=== PATIENT | female | born 1945 | race Caucasian/White ===

== ENCOUNTER 2018-08-14 14:22 | Outpatient (CLI) | payer MEDICARE | END 2018-08-14 14:23 | disposition home or self-care (01) | LOC: ULT 14:22 | PROVIDERS: ATTEND Family Medicine | DX: R60.0 Localized edema (principal); I08.3 Combined rheumatic disorders of mitral, aortic and tricuspid valves | CPT/HCPCS: 93306 ==

== ENCOUNTER 2020-02-21 13:08 | Inpatient (IN) | payer MEDICARE, OTHER ==
[~2020-02-21 13:08] MED LIST: Iopamidol-370 76% 500 ML 1 ML ONE
[2020-02-21] MEDS ORDERED: Morphine 4 MG/ML VIAL ONE (13:52)
[2020-02-21 14:27] LABS: #Eosinphils 0.2 thou/uL (0.0-0.7); #Lymphocytes 1.1 thou/uL (1.20-3.40); #Monocytes 0.6 thou/uL (0.11-0.59); %Basophils 0.2 % (0.0-1.0); %Lymphocytes 12.6 % (21.0-51.0); %Monocytes 6.2 % (0.0-10.0); Hemoglobin 13.1 g/dL (12.0-16.0); Mean Corpuscular HGB CONC 32.3 g/dL (32.0-36.0); Mean Corpuscular Hemoglobin 30.8 pg (27.0-31.0); Mean Corpuscular Volume 95.5 fL (78.0-98.0); Mean Platelet Volume 9.2 fL (7.4-10.4); Platelet Count 187 thou/uL (130-400); RBC Distribution Width 11.2 % (11.5-14.5); Red Blood Cell (RBC) Count 4.25 mill/uL (4.20-5.40); White Blood Cell (WBC) Count 8.8 thou/uL (4.8-10.8)
[2020-02-21 14:43] LABS: Anion Gap 16 mmol/L (10-20); BUN (Urea Nitrogen) 23 mg/dL (9.8-20.1); Calc. Creatinine Clearance 0 mL/min (70-130); Calcium 9.5 mg/dL (7.8-10.44); Carbon Dioxide 23 mmol/L (23-31); Chloride 106 mmol/L (98-107); Estimated GFR-MDRD 67; Glucose 139 mg/dL (83-110); Potassium 4.3 mmol/L (3.5-5.1); Sodium 141 mmol/L (136-145)
[2020-02-21] MEDS ORDERED: Acetaminophen 500 MG TAB ONE (15:22)
[2020-02-21] MEDS ORDERED: hydrALAZINE 20 MG/ML VIAL SLOW IVP PRN (17:46)
[2020-02-21] MEDS ORDERED: Dextrose 50% Abboject 50 ML SYRINGE SLOW IVP PRN (17:46)
[2020-02-21] MEDS ORDERED: Morphine 2 MG/ML VIAL SLOW IVP PRN (17:46)
[2020-02-21] MEDS ORDERED: Dextrose 5% in Water 1,000 ML IV PRN (17:46)
[2020-02-21] MEDS ORDERED: Lisinopril 10 MG TAB ONE (17:55)
[2020-02-21] MEDS ORDERED: Amlodipine 5 MG TAB ONE (17:55)
--- NOTE | 2020-02-21 18:18 | CT ---
NONCONTRAST CT HEAD CT ANGIOGRAM HEAD WITH IV CONTRAST AND 3D RECONSTRUCTIONS CT ANGIOGRAM NECK WITH IV CONTRAST AND 3D RECONSTRUCTIONS: 02/21/20 HISTORY: C1 fracture. Recent fall. NONCONTRAST CT HEAD COMPARISON: 02/21/20 at 1044 hours. FINDINGS: There are low density foci seen within each caudate head related to lacunar infarction of indetermina te age and unchanged from prior exam. There is no evidence of an acute cortical infarction, hemorrhag e, mass effect, or midline shift. Ventricular system is normal in size, shape and position for the de gree of focal atrophy. CT ANGIOGRAM HEAD AND NECK: Vascular calcifications are seen at the aortic arch. The left subclavian artery and innominate artery are patent. Right subclavian artery is partially obscured due to dense venous contrast. The bilatera l common carotid arteries are patent. Vascular calcifications are seen at the carotid artery bifurcations. The bilateral internal carotid a rteries are otherwise patent. The right vertebral artery is patent and dominant. The left vertebral artery is small in caliber and occludes just distal to the level of the C1 transverse process fracture which is seen on this examina tion and also seen on CT cervical spine on 02/21/20 at 1045 hours. There is slight irregularity of the margins of the left vertebral artery just distal to the fracture, and the left vertebral artery then occludes. There is a small amount of contrast seen in the most distal left vertebral artery likely r elated to reflux on contralateral right side. The basilar artery is patent. Bilateral posterior cerebral arteries are patent. The bilateral middle cerebral and anterior cerebral arteries are patent. No focal stenosis or branch occlusion is seen, and there is no aneurysm within the limitations of the technique of this exam. As noted above and compared with prior CT cervical spine on this date, there is a slightly fracture through the left transverse process of C1 which extends through the left foramen transversar ium. Prevertebral soft tissues are within normal limits. Subcentimeter nodular densities are seen in each lobe of the thyroid gland with calcifications also s een in the right lobe of the thyroid gland. There are ground glass densities seen in the upper lung zones bilaterally which may represent volume loss as this exam is obtained in expiratory phase of imaging. IMPRESSION: 1. Fracture left transverse process of C1 which extends through the foramen transversarium. The left vertebral artery occludes just distal to the level of the fracture. The most distal left vertebr al artery is opacified likely related to flow from the contralateral right vertebral artery. 2. Patent bilateral carotid arteries. 3. No focal stenosis or branch occlusion is seen involving the t[place] of [place]. 4. Right vertebral artery is patent although there is mild narrowing with calcified atherosclero tic calcification in the distal right vertebral artery. Basilar artery and posterior cerebral arterie s are patent. 5. Lacunar infarctions each basal ganglia of indeterminate age. No acute cortical infarction or hemorrhage is seen. 6. Above findings discussed with Dr. Damico in the Emergency Department on 02/21/20 at 1611 h ours. POS: [facility]
[2020-02-21 18:29] LABS: Prothrombin Time 12.7 sec (12.0-14.7)
[2020-02-21] MEDS: Acetaminophen 325 MG TAB PO SCH (19:51)
[2020-02-21] MEDS: HYDROcodone/Acetaminophen 5/325 mg Tablet PO PRN (20:57)
[2020-02-21] MEDS: Famotidine 20 MG TAB PO SCH (20:57)
[2020-02-21] MEDS: Naproxen 500 MG TAB PO SCH (21:01)
[2020-02-21 21:19] VITALS: BMI 40.1
[2020-02-21] MEDS: Ondansetron PF 4 MG/2 ML Vial IVP PRN (21:45)
--- NOTE | 2020-02-21 23:38 | CON ---
DATE OF CONSULTATION: 02/21/2020 HISTORY OF PRESENT ILLNESS: The patient is a 74-year-old female with a history of hypertension, diabetes, hyperlipidemia, who presented to [facility] Emergency Department after a mechanical fall off her recliner. The patient reports that she fell asleep in her chair and then suddenly fell forward out of the chair, striking the right frontal region on the entertainment center. She was brought to [facility] ER where she was evaluated with CT head and cervical spine, which were notable for a left-sided C1 fracture through the transverse foramen, transverse process and along the left lateral mass. She was transferred for further management of this fracture. CT head was negative for acute injury. Upon arrival to the emergency department, I discussed the case with the emergency physician and recommended CTA of the head and neck. CTA was notable for left vertebral artery dissection. I visited the patient in the ER. She is currently immobilized in a hard collar. She is complaining of some pain in the upper posterior cervical region. She is A and O x4 with no focal neurologic deficits. She takes an 81 mg aspirin daily. Blood pressure slightly is notably elevated with systolic pressure of 197 at this time. PAST MEDICAL HISTORY: Hypertension, hyperlipidemia, diabetes. PAST SURGICAL HISTORY: Bilateral knee replacement, cataract surgery. SOCIAL HISTORY: She lives at home. She does not smoke, drink, or use any drugs. REVIEW OF SYSTEMS: Per HPI. ALLERGIES: SHE HAS NO KNOWN DRUG ALLERGIES. PHYSICAL EXAMINATION: CONSTITUTIONAL: Awake, alert, in no acute distress. HEAD: She has a small abrasion along the frontal region on the right. EYES: PERRLA. Extraocular movements intact. ENT: Manuel Garcia, intact, moist. She has a normal voice. NECK: She is currently immobilized in a hard cervical collar. RESPIRATORY: Symmetric chest expansion. CARDIOVASCULAR: Regular rate and rhythm. MUSCULOSKELETAL: She has free active range of motion of all extremities. No focal motor weakness. NEUROLOGIC: A and O x4. No focal neurologic deficits are appreciated. ASSESSMENT AND PLAN: This is a 74-year-old female with a mechanical fall, who was found to have a left C1 fracture through the transverse foramen with a left vertebral artery dissection. We will plan to treat the fracture conservatively in a C-collar at all times. I have ordered an [place] to wear at all times and a [place] collar for showering purposes. We will also anticoagulate her with an aspirin 325 mg daily. We will work on getting her blood pressure down here and monitor in the IMCU closely overnight with frequent neuro checks. Her systolic blood pressure goal should be less than 160. I have discussed this plan with Dr. Iqbal who is in agreement. The patient has been admitted by the Trauma team. Job ID: [id number] MTDD
[2020-02-22] MEDS: Acetaminophen 325 MG TAB PO SCH ×5 (00:16→23:45)
[2020-02-22] MEDS: HYDROcodone/Acetaminophen 5/325 mg Tablet PO PRN ×2 (02:21→20:26)
[2020-02-22] MEDS: Ondansetron PF 4 MG/2 ML Vial IVP PRN ×3 (02:46→20:27)
--- NOTE | 2020-02-22 04:20 | HP ---
REFERRED BY: Dr. Giang in the emergency department. CRITICAL CARE/TRAUMA ATTENDING: Waqas Tello MD PRIMARY CARE PHYSICIAN: Dr. Chowdhury at [facility] in [place]. HISTORY OF PRESENT ILLNESS: Ms. Newman is a 74-year-old female with past medical history of type 2 diabetes, sciatic pain, hypertension, peripheral vascular disease, possibly hyperlipidemia, presenting to [place] [facility] after a fall resulting in an axial load approximately 0600 hours this date. The patient states she was in a chair in her room. At that time, she got up and stumbled forward. It was not a chair that she was used to getting out of, landing straight on the top of her head against an entertainment system. She fell to the floor. She had some neck pain. She was unable to get up. Finally, summoned EMS around 9 o'clock and was brought to the emergency department. In the emergency department at [place], was found to have a C1 fracture. She was given pain control, C-collar, and transferred here. Here, the patient underwent a CTA, demonstrated a left vertebral artery dissection. The patient has been seen by Neurosurgery. She is neurovascularly intact. She is hemodynamically stable. She does have hypertension of note. Her pain is controlled after 4 mg of morphine. She has not taken any of her antihypertensives today. I evaluated personally the patient in the emergency department alongside the nurse surgical PA and the bedside RN. The patient was noted to have a blood pressure nearly 200 systolic. She has no headache. No chest pain or shortness of air. No nausea, no vomiting. She does report some right-sided pain and sciatic pain that is chronic for her. Otherwise, she denies any other injuries. She is able to move all of her extremities. She does have some slight neck pain and some pain to the back of her head only. The patient does not have a global headache. The patient has no paresthesias. She was able to move all of her extremities. She has no visual changes. REVIEW OF SYSTEMS: Pertinent positive and negative per HPI, otherwise regarded as negative. PAST MEDICAL HISTORY: Significant for diabetes type 2, non-insulin dependent, right sciatica, hypertension, peripheral vascular disease, and hyperlipidemia. PAST SURGICAL HISTORY: Bilateral TKA, bilateral cataract surgeries. MEDICATIONS: 1. Metformin 1 g b.i.d. 2. Lisinopril 20 mg daily. 3. Lasix 20 mg daily. 4. Glipizide. 5. Pioglitazone 15 mg daily. 6. Atorvastatin 20 mg daily. ALLERGIES: ULTRAM CAUSING A RASH AND BURNING. SOCIAL HISTORY: She is a lifelong nonsmoker. No tobacco use. Socially drinks alcohol only. She is of 50 years, has one adult daughter and three grandsons. She lives alone. FAMILY HISTORY: Significant for renal disease in her mother, likely secondary to NSAIDs use from RA and heart disease in her father. PHYSICAL EXAMINATION: VITAL SIGNS: Today, temperature is 98.0, blood pressure 189/85, heart rate is 59, breathing 20 times per minute, saturating 94% on room air. GENERAL: This is a 74-year-old female lying supine in bed in a C-collar in no acute distress. Nontoxic appearing. HEENT: Normocephalic, atraumatic. Trachea is midline. She does have an [place] collar in place. There is no soft tissue swelling. No edema. No point tenderness. RESPIRATORY: Equal rise and fall. Bilateral breath sounds. Clear to auscultation in upper and lower lobes bilaterally. CARDIOVASCULAR: Trace bradycardia at a rate of 58. No murmurs were appreciated. EXTREMITIES: Nonpitting edema to the level just above the ankles bilaterally. She has strong pulses. Warm extremities. No edema in the upper extremities. ABDOMEN: Obese, but soft, nontender. No peritoneal signs. No masses, guarding, or rigidity. Pelvis is stable. MUSCULOSKELETAL: She moves her extremities. She does have surgical scars noted about bilateral knees. She has full range of motion of the knee. Full sensation. NEUROLOGIC: Alert, oriented, to person, place, time, and event. GCS is 15. Cranial nerves 2 through 12 are normal. Tvvnuw-pz-[id number] is normal bilaterally. Extraocular motions normal. Pupils are reactive at 3 mm. PSYCH: Normal mood and affect. DIAGNOSTIC CRITERIA: Today, laboratory, white blood cell count is 8.8, platelets are 187, hemoglobin and hematocrit are 13.1 and 40.6 respectively. Sodium is 141, potassium is 4.3, chloride is 106, CO2 is 23, BUN is 23, creatinine 0.83, a glucose of 139, and calcium 9.3. RADIOGRAPHIC DATA: She has a CT brain that is negative. CT C-spine showing a C1 fracture through the foramen on the left side. A CTA demonstrating a left vertebral artery dissection and again demonstrating the C1 fracture. Otherwise, no abnormalities. ASSESSMENT: 1. Mechanical fall. 2. Acute traumatic pain. 3. C1 fracture. 4. Left vertebral artery dissection. 5. Hypertension. 6. History of hyperlipidemia and diabetes. PLAN: 1. Aspirin 325 mg daily for her vertebral artery dissection. Discussed heparin infusion, with Neurosurgery not recommended at this time. 2. We will admit the patient to the [facility] for frequent neuro checks. 3. Control blood pressure with a goal of systolic blood pressure less than 160. 4. Amlodipine 10 mg now. 5. Lisinopril 20 mg now. 6. P.r.n. blood pressure again for goal less than 160. 7. Neuro checks q.2 hours. 8. Pain control. 9. Point of care glucose and sliding scale insulin. 10. Trauma bowel regimen. 11. We will resume the patient's home Lasix and atorvastatin. 12. Diet will be a carb controlled diet. 13. Activity is going to be up with assistance only and must have [place] collar in place. 14. Full code. 15. Access of peripheral IVs. 16. Prophylaxis will be famotidine and SCDs. 17. Disposition is going to be [facility] for the night. 18. I have updated the patient and the patient's family at the bedside and answered all questions. I have coordinated with the emergency department staff and bedside RN. Job ID: [id number]
[2020-02-22 07:54] LABS: #Eosinphils 0.1 thou/uL (0.0-0.7); #Lymphocytes 1.1 thou/uL (1.20-3.40); #Monocytes 0.6 thou/uL (0.11-0.59); #Neutrophils 6.1 thou/uL (1.40-6.50); %Basophils 0.5 % (0.0-1.0); %Eosinophils 1.5 % (0.0-10.0); %Monocytes 7.5 % (0.0-10.0); %Neutrophils 76.5 % (42.0-75.0); Hemoglobin 13.1 g/dL (12.0-16.0); Mean Corpuscular HGB CONC 32.3 g/dL (32.0-36.0); Mean Corpuscular Volume 95.8 fL (78.0-98.0); Mean Platelet Volume 8.8 fL (7.4-10.4); Platelet Count 185 thou/uL (130-400); RBC Distribution Width 11.3 % (11.5-14.5); Red Blood Cell (RBC) Count 4.23 mill/uL (4.20-5.40)
[2020-02-22 08:11] LABS: Anion Gap 16 mmol/L (10-20); BUN (Urea Nitrogen) 18 mg/dL (9.8-20.1); Calc. Creatinine Clearance 104 mL/min (70-130); Calcium 8.8 mg/dL (7.8-10.44); Carbon Dioxide 22 mmol/L (23-31); Chloride 103 mmol/L (98-107); Estimated GFR-MDRD 74; Glucose 142 mg/dL (83-110); Magnesium 1.5 mg/dL (1.6-2.6); Potassium 3.9 mmol/L (3.5-5.1); Sodium 137 mmol/L (136-145)
[2020-02-22] MEDS ORDERED: Magnesium Sulfate 2 GM in Sodium Chloride 0.9% 100 ML IVPB SCH (08:30)
[2020-02-22] MEDS ORDERED: Magnesium 2 GM/50 ML 2 GM in Premix Bag 1 BAG IVPB SCH (08:30)
[2020-02-22] MEDS: Naproxen 500 MG TAB PO SCH ×2 (10:56→20:24)
[2020-02-22] MEDS: Aspirin 325 MG TAB PO SCH (10:56)
[2020-02-22] MEDS: Famotidine 20 MG TAB PO SCH ×2 (10:56→20:25)
[2020-02-22 12:25] LABS: SARS-CoV-2 MS2 Positive; SARS-CoV-2 N Gene Negative; SARS-CoV-2 S Gene Negative; SARS-CoV-2 by NAA Not Detected (NotDetected); SARS-CoV-2 orf1ab Negative
[2020-02-22] MEDS ORDERED: Amlodipine 10 MG TAB PO SCH (13:15)
[2020-02-22] MEDS: Insulin Regular 300 UNITS/3 ML VIAL SC PRN ×2 (13:30→20:43)
--- NOTE | 2020-02-22 13:57 | PRG ---
DATE OF SERVICE: 02/22/2020 The patient was seen and examined. I agree with Maria Mercado's evaluation on 02/21/2020. The patient is a 74-year-old woman, who was injured yesterday sustaining a C1 fracture. She complains of neck pain and discomfort from her cervical collar, but is otherwise neurologically intact. Imaging has revealed a C1 fracture involving the left foramen transversarium without subluxation or displacement. CTA has suggested a vertebral dissection. IMPRESSION AND PLAN: With regard to the fracture, we will treat with cervical immobilization for 8 to 12 weeks and I will see her back in 4 weeks with x-rays to reassess her progress. With the [place] collar on, she can be aggressively mobilized. With regard to the vertebral dissection, she should be treated with aspirin and I discussed this with her. Job ID: [id number]
--- NOTE | 2020-02-22 17:18 | PRG ---
DATE OF SERVICE: 02/22/2020 SUBJECTIVE: Ms. Newman is hospital day #1, status post fall with C1 fracture and left vertebral artery dissection. The patient remained neurovascularly intact. Her blood pressure has remained stable throughout her hospital course. The patient is given insulin for glucose. Pain is generally controlled. She has no nausea, no vomiting, no other changes. OBJECTIVE: VITAL SIGNS: Temperature is 97.3, blood pressure is 153/59, heart rate is 58, respiratory rate is 18, saturating 92% on room air. GENERAL: This is 74-year-old female sitting up in an [place] collar. No acute distress. HEENT: [place] collar is noted. Trachea is midline. No facial droop. RESPIRATORY: Equal rise and fall. Bilateral breath sounds. Clear to auscultation in upper and lower bilaterally. CARDIOVASCULAR: Regular rate and rhythm. ABDOMEN: Obese, soft, nontender. Pelvis is stable. NEURO: The patient is able to move all of her extremities. She has no facial droop. She has no focal deficits appreciated. GCS is 15. PSYCH: Normal mood and affect. SKIN: Warm and dry. LABORATORY DATA: From today, white blood cell count is 8.0, platelets 185, hemoglobin and hematocrit 13.1 and 40.5 respectively. Sodium is 137, potassium is 3.9, chloride is 103, CO2 is 22, BUN is 18, creatinine is 0.76 with glucose of 142, calcium is 8.8, and magnesium of 1.5 with a phos of 4.0. ASSESSMENT: 1. Fall with the C1 fracture. 2. Left vertebral artery dissection. 3. History of hypertension. 4. History of diabetes and hyperlipidemia. 5. Acute traumatic pain, improving. PLAN: 1. Continue aspirin 825 mg daily per Neurosurgery. 2. Continue [place] collar. 3. Transfer to the surgery [place]. 4. Neuro checks q.4 hours. 5. Continue pain control. 6. Point of care glucose and sliding scale insulin as needed. 7. Replace magnesium today. 8. Continue all other supportive care. The patient did want to go to her oral antihyperglycemics, explained I would rather keep her with the insulin here given she may need urgent head CT including a perfusion study as the risk for stroke is elevated with her vertebral artery dissection, discussed with the nurse also. No family at the bedside to update at this time. Answered all questions. The patient coordinated with the bedside RN. Job ID: [id number]
[2020-02-22] MEDS ORDERED: Gabapentin 100 MG CAP PO SCH ×2 (20:15→21:00)
[2020-02-22] MEDS ORDERED: hydrALAZINE 25 MG TAB PO SCH (20:15)
[2020-02-22] MEDS: Scopolamine 1.5 mg/72 hour Patch TOP SCH (20:27)
[2020-02-22] MEDS: Enoxaparin Sodium 40 MG/0.4 ML SYRINGE SC SCH (20:35)
[2020-02-22] MEDS: Gabapentin 300 MG CAP PO SCH (20:36)
[2020-02-23] MEDS: Acetaminophen 325 MG TAB PO SCH ×4 (05:25→20:33)
[2020-02-23] MEDS: Ondansetron PF 4 MG/2 ML Vial IVP PRN (05:54)
[2020-02-23] MEDS: Insulin Regular 300 UNITS/3 ML VIAL SC PRN ×3 (06:47→18:20)
[2020-02-23] MEDS: Aspirin 325 MG TAB PO SCH (08:29)
[2020-02-23] MEDS: Naproxen 500 MG TAB PO SCH ×2 (08:29→20:34)
[2020-02-23] MEDS: Famotidine 20 MG TAB PO SCH ×2 (08:29→20:34)
[2020-02-23] MEDS: Amlodipine 10 MG TAB PO SCH (08:30)
[2020-02-23] MEDS: Gabapentin 300 MG CAP PO SCH ×3 (08:31→20:34)
[2020-02-23] MEDS: HYDROcodone/Acetaminophen 5/325 mg Tablet PO PRN (08:40)
[2020-02-23] MEDS ORDERED: oxyCODONE 5 MG TAB PO PRN (14:40)
[2020-02-23] MEDS: Enoxaparin Sodium 40 MG/0.4 ML SYRINGE SC SCH (20:34)
[2020-02-23] MEDS ORDERED: Insulin Glargine 7 UNITS in Pre-Filled Syringe SC SCH (21:00)
[2020-02-24] MEDS: Acetaminophen 325 MG TAB PO SCH ×6 (00:40→20:28)
--- NOTE | 2020-02-24 01:38 | PRG ---
DATE OF SERVICE: 02/23/2020 SUBJECTIVE: The patient was seen this evening during rounds. She was lying in bed, resting comfortably and asleep with no signs of acute distress. Nursing reported no acute events. OBJECTIVE: VITAL SIGNS: Temperature 98.4, pulse 70, respirations 16, oxygen saturation 95% on room air, and blood pressure 151/85. GENERAL: Well-appearing elderly female, lying in bed, resting comfortably, asleep with no signs of acute distress. C-collar in place and fitting appropriately. PULMONARY: Equal chest rise and fall. No signs of acute respiratory distress. ASSESSMENT: 1. Status post fall from chair. 2. C1 fracture. 3. Left vertebral artery dissection. 4. History of diabetes, sciatic nerve pain, hypertension, peripheral vascular disease, and hyperlipidemia. PLAN: Continue current diet and pain regimen. Continue physical and occupational therapy. Continue [place]pen collar. The patient is pending discharge to acute rehab facility. She is ready for discharge at this time. Job ID: [id number]
[2020-02-24] MEDS: Atorvastatin Calcium 20 MG TAB PO SCH (08:03)
[2020-02-24] MEDS: Famotidine 20 MG TAB PO SCH ×2 (08:03→20:28)
[2020-02-24] MEDS: Aspirin 325 MG TAB PO SCH (08:03)
[2020-02-24] MEDS: Naproxen 500 MG TAB PO SCH ×2 (08:03→20:27)
[2020-02-24] MEDS: Gabapentin 300 MG CAP PO SCH ×3 (08:03→20:27)
[2020-02-24] MEDS: Amlodipine 10 MG TAB PO SCH (08:04)
[2020-02-24] MEDS: Lisinopril 20 MG TAB PO SCH (08:04)
[2020-02-24] MEDS: Senokot S 8.6-50 MG TAB PO SCH ×2 (09:25→20:27)
[2020-02-24] MEDS: Polyethylene Glycol 3350 17 GM Packet PO SCH (09:25)
--- NOTE | 2020-02-24 10:33 | PRG ---
DATE OF SERVICE: 02/23/2020 This patient was seen on morning rounds. SUBJECTIVE: Ms. Newman is hospital day #2, status post a fall with C1 fracture and left vertebral artery dissection. She was seen by Neurosurgery who feel she does not require heparin and that she is neurovascularly stable. The patient states her pain is generally well controlled. This morning, she endorses nausea without vomiting and continued headache, although she is able to ambulate well and transfer from bed to chair. She states she was evaluated by PT/OT with which she had no problems. She is resistant to the idea of going to temporary inpatient rehab since she has a house set up with multiple handicap adaptations. As such, she thinks home health would be sufficient. She is agreeable to the idea of having a trial at home with home health, but then going to inpatient rehab if she feels she is not progressing well and would like to start the inpatient rehab screening to start that process. Otherwise, she feels she is ready to go home. OBJECTIVE: VITAL SIGNS: She has been afebrile, her pulse has been in the 60s, respirations 14 to 16, oxygen saturation 93% to 94% on room air. Her blood pressures have been elevated in the 150s to 160s systolic. GENERAL: She is sitting up in the chair in an [place] collar, in no acute distress. HEENT: [place] collar is noted. NC/AT. RESPIRATORY: No respiratory distress. CARDIOVASCULAR: Regular rate and rhythm. ABDOMEN: Obese, soft. NEUROLOGIC: The patient is able to move all of her extremities. She has no facial droop or focal deficits. PSYCHIATRIC: Normal mood and affect. LABORATORY DATA: No labs were drawn today. Her sugars have been elevated ranging from 151 to 210. ASSESSMENT: 1. Fall with C1 fracture. 2. Left vertebral artery dissection. 3. History of hypertension. 4. History of diabetes and hyperlipidemia. 5. Acute traumatic pain, improving. PLAN: 1. Continue aspirin 325 mg daily per Neurosurgery. 2. Continue use of [place] collar. 3. Change [place] to oxycodone. 4. Place scopolamine patch for nausea. 5. [id number] glucose and sliding scale insulin as needed. 6. Continue all other supportive care. 7. Plan for discharge if pain remains controlled with new medications. 8. No family was at the bedside. All questions were answered. Job ID: [id number] [facility]
[2020-02-24] MEDS: Insulin Regular 300 UNITS/3 ML VIAL SC PRN ×2 (11:42→17:03)
[2020-02-24] MEDS ORDERED: metFORMIN 500 MG TAB PO SCH (17:00)
[2020-02-24] MEDS: Enoxaparin Sodium 40 MG/0.4 ML SYRINGE SC SCH (20:28)
[2020-02-24] MEDS: oxyCODONE 5 MG TAB PO PRN (22:44)
--- NOTE | 2020-02-25 00:49 | PRG ---
DATE OF SERVICE: 02/24/2020 SUBJECTIVE: The patient was seen this evening during rounds. She was lying in bed, resting comfortably and asleep with no signs of acute distress. C-collar was on and fitting appropriately. OBJECTIVE: VITAL SIGNS: Temperature 98.1, pulse 66, respirations 18, oxygen saturation 92% on room air, and blood pressure 133/79. GENERAL: Well-appearing elderly female, lying in bed, resting comfortably and asleep with no signs of acute distress. C-collar in place and fitting appropriately. PULMONARY: Equal chest rise and fall. No signs of acute respiratory distress. ASSESSMENT: 1. Status post fall from chair. 2. C1 fracture. 3. Left vertebral artery dissection. 4. History of diabetes, sciatic pain, hypertension, peripheral vascular disease, and hyperlipidemia. PLAN: Continue current diet and pain regimen. Continue physical and occupational therapy. The patient is pending discharge to acute rehab facility. She is ready for discharge at this time. Job ID: [id number]
[2020-02-25] MEDS: Acetaminophen 325 MG TAB PO SCH ×6 (01:10→21:19)
[2020-02-25 05:16] LABS: Hemoglobin 12.7 g/dL (12.0-16.0); Mean Corpuscular HGB CONC 31.7 g/dL (32.0-36.0); Mean Corpuscular Hemoglobin 30.4 pg (27.0-31.0); Mean Corpuscular Volume 95.9 fL (78.0-98.0); Mean Platelet Volume 8.8 fL (7.4-10.4); Platelet Count 186 thou/uL (130-400); RBC Distribution Width 11.3 % (11.5-14.5); Red Blood Cell (RBC) Count 4.17 mill/uL (4.20-5.40); White Blood Cell (WBC) Count 6.2 thou/uL (4.8-10.8)
[2020-02-25 05:36] LABS: Anion Gap 14 mmol/L (10-20); BUN (Urea Nitrogen) 16 mg/dL (9.8-20.1); Calc. Creatinine Clearance 103 mL/min (70-130); Calcium 8.6 mg/dL (7.8-10.44); Carbon Dioxide 26 mmol/L (23-31); Chloride 101 mmol/L (98-107); Estimated GFR-MDRD 73; Glucose 104 mg/dL (83-110); Magnesium 1.7 mg/dL (1.6-2.6); Phosphorus 3.5 mg/dL (2.3-4.7); Potassium 3.8 mmol/L (3.5-5.1); Sodium 137 mmol/L (136-145)
[2020-02-25] MEDS ORDERED: Non-Formulary Item 1 EACH (Metformin Hcl [Metformin Hcl] 1,000 MG Tablet) PO SCH (09:00)
[2020-02-25] MEDS: metFORMIN 500 MG TAB PO SCH ×2 (09:00→17:51)
[2020-02-25] MEDS ORDERED: Furosemide 20 MG TAB PO SCH (09:00)
[2020-02-25] MEDS: Pioglitazone HCl 15 MG TAB PO SCH (09:01)
[2020-02-25] MEDS: Aspirin 325 MG TAB PO SCH (09:01)
[2020-02-25] MEDS: Senokot S 8.6-50 MG TAB PO SCH ×2 (09:02→21:20)
[2020-02-25] MEDS: Famotidine 20 MG TAB PO SCH ×2 (09:02→21:19)
[2020-02-25] MEDS: Naproxen 500 MG TAB PO SCH ×2 (09:02→21:19)
[2020-02-25] MEDS: Atorvastatin Calcium 20 MG TAB PO SCH (09:02)
[2020-02-25] MEDS: Gabapentin 300 MG CAP PO SCH ×3 (09:03→21:19)
[2020-02-25] MEDS: Lisinopril 20 MG TAB PO SCH (09:03)
[2020-02-25] MEDS: Polyethylene Glycol 3350 17 GM Packet PO SCH (09:08)
[2020-02-25] MEDS ORDERED: POTASSIUM PHOSPHATE IVPB SCH (09:15)
[2020-02-25] MEDS ORDERED: [UNRECOGNIZED DRUG - OTHER] IVPB SCH (09:15)
[2020-02-25] MEDS ORDERED: MAGNESIUM SULFATE IVPB SCH (09:15)
[2020-02-25] MEDS: Amlodipine 10 MG TAB PO SCH (12:30)
[2020-02-25] MEDS: Insulin Regular 300 UNITS/3 ML VIAL SC PRN ×2 (13:49→17:52)
--- NOTE | 2020-02-25 20:13 | PRG ---
DATE OF SERVICE: 02/25/2020 This patient was seen during morning rounds. SUBJECTIVE: Ms. Newman states she had a bad night last night due to being uncomfortable with the [place] collar. She states that while she is sitting up, her chin rests comfortably where it is supposed to. As long as it has been applied correctly it does not bother her much, but once she lies down, it is not comfortable. She did not want to take her Lasix, which we ordered based on her reconciled home medications. She states that she used to take Lasix MWF but no longer takes it so that will be discontinued. She was also resistant to take her potassium phosphate this morning. She used to take a potassium pill with the Lasix and thought that was the reason we were trying to give it to her and she thought it was unnecessary to replace her electrolytes since she is not taking the Lasix. We informed her that we are replacing her electrolytes independent of the Lasix. She is still agreeable to going to inpatient temporarily. She had no complaints at this time and her pain was well controlled. OBJECTIVE: VITAL SIGNS: She has been afebrile. The pulse has ranged from 62 to 72. Her respirations have been 18. Her oxygen saturation has ranged from 92% to 93% on room air. Her blood pressure has ranged from systolic 120 to 148 and diastolic 73 to 83. GENERAL: Well-appearing female, lying comfortably in bed, in no acute distress. HEENT: NC/AT. [place] collar is in place. RESPIRATORY: No respiratory distress. LABORATORY DATA: This morning, her potassium was low at 3.8 and her magnesium was low at 1.7. These were the only notable labs. ASSESSMENT: 1. C1 fracture, status post fall from chair. 2. Left vertebral artery dissection, status post aspirin per Neurosurgery. 3. History of diabetes, sciatic pain, hypertension, peripheral vascular disease, and hyperlipidemia. PLAN: Continue current diet and pain regimen. Continue physical and occupational therapy. The patient is pending discharge to acute rehab facility once approved by her insurance. Continue monitoring of her blood pressure and adjust medications as necessary. Addendum: Pt was seen and examined with Resident and plan established together Job ID: [id number] [facility]
[2020-02-25] MEDS: Enoxaparin Sodium 40 MG/0.4 ML SYRINGE SC SCH (21:18)
[2020-02-25] MEDS: Scopolamine 1.5 mg/72 hour Patch TOP SCH (21:19)
[2020-02-25] MEDS ORDERED: Melatonin 3 MG TAB PO PRN (22:25)
[2020-02-25] MEDS: oxyCODONE 5 MG TAB PO PRN (23:10)
[2020-02-25] MEDS ORDERED: diphenhydrAMINE 50 MG CAP PO SCH (23:15)
--- NOTE | 2020-02-26 00:37 | PRG ---
DATE OF SERVICE: 02/25/2020 SUBJECTIVE: The patient was seen this evening during rounds. She was lying in bed, resting comfortably and easily arousable. She reported her pain is well controlled and had several questions regarding her discharge planning and if she would be able to go home eventually had long discussions about her goals and functional capacity before she will be able to go home from rehab. She has been discharged to rehab. She also reports symptoms of concussion including headache and nausea, which have improved. OBJECTIVE: VITAL SIGNS: Temperature 97.8, pulse 61, respirations 14, oxygen saturation 98% on room air, and blood pressure 139/75. GENERAL: Well-appearing elderly female, lying in bed with no signs of acute distress. PULMONARY: Equal chest rise and fall. No signs of acute respiratory distress. NEUROLOGIC: GCS is 15. Gross motor and sensation intact. C-collar fitting appropriately. ASSESSMENT: 1. Status post fall from chair. 2. C1 fracture. 3. Left vertebral artery dissection. 4. Concussion, improving. 5. History of diabetes, sciatic pain, hypertension, peripheral vascular disease, and hyperlipidemia. PLAN: Continue current diet and pain regimen. Continue physical and occupational therapy. Xavier [email or web address] for sleep. The patient is pending discharge to acute rehab facility. She is ready for discharge at this time. Job ID: [id number]
[2020-02-26] MEDS: Acetaminophen 325 MG TAB PO SCH ×6 (01:09→23:21)
[2020-02-26] MEDS: Polyethylene Glycol 3350 17 GM Packet PO SCH (08:30)
[2020-02-26] MEDS: Famotidine 20 MG TAB PO SCH ×2 (08:30→23:11)
[2020-02-26] MEDS: Pioglitazone HCl 15 MG TAB PO SCH (08:31)
[2020-02-26] MEDS: metFORMIN 500 MG TAB PO SCH ×2 (08:31→16:36)
[2020-02-26] MEDS: Senokot S 8.6-50 MG TAB PO SCH ×2 (08:32→23:22)
[2020-02-26] MEDS: Gabapentin 300 MG CAP PO SCH ×3 (08:32→23:11)
[2020-02-26] MEDS: Lisinopril 20 MG TAB PO SCH (08:32)
[2020-02-26] MEDS: Amlodipine 10 MG TAB PO SCH (08:32)
[2020-02-26] MEDS: Naproxen 500 MG TAB PO SCH ×2 (08:32→23:22)
[2020-02-26] MEDS: Aspirin 325 MG TAB PO SCH (08:32)
[2020-02-26] MEDS: Atorvastatin Calcium 20 MG TAB PO SCH (08:32)
[2020-02-26] MEDS: Insulin Regular 300 UNITS/3 ML VIAL SC PRN (12:21)
--- NOTE | 2020-02-26 17:55 | PRG ---
DATE OF SERVICE: 02/26/2020 This patient was seen during the morning rounds. SUBJECTIVE: The patient was concerned about her [place] collar not being placed appropriately and wanting us to check it. She is still agreeable to going to inpatient rehab for a few days prior to going home and is eager to make that transition. She is still endorsing headaches especially at night, but they are relatively well controlled by her current pain regimen. She was endorsing good pain control at that time and had no other questions or concerns. OBJECTIVE: VITAL SIGNS: She has been afebrile. Her pulse has been normal ranging from 59 to 72. Her respiratory rate has been normal ranging from 14 to 18. She has been saturating at 92% to 98% on room air. Her blood pressure has been mildly elevated ranging from 133 to 170 systolic, 73 to 85 diastolic. Her blood sugars are in need of better control as they have ranged from 89 to 192. GENERAL: Elderly female, standing comfortably in her room with [place] collar in place. HEENT: NC/AT. RESPIRATORY: No respiratory distress. NEUROLOGIC: A and O x4. No focal deficit. ASSESSMENT: 1. C1 fracture, status post floor level fall with axial load and without loss of consciousness. 2. 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 3. Hypertension. 4. Diabetes. 5. Hyperlipidemia. PLAN: Continue to monitor her blood pressure and blood sugars and adjust medications as necessary. The plan is to discharge her to [facility]. Her insurance, [employer], is requesting a [id number] today to make a final decision on whether or not she can go. Job ID: [id number]
[2020-02-26] MEDS ORDERED: diphenhydrAMINE 50 MG CAP PO PRN (20:35)
[2020-02-26] MEDS ORDERED: Melatonin 3 MG TAB PO SCH (21:00)
[2020-02-26] MEDS: oxyCODONE 5 MG TAB PO PRN (23:11)
[2020-02-26] MEDS: Enoxaparin Sodium 40 MG/0.4 ML SYRINGE SC SCH (23:11)
--- NOTE | 2020-02-27 00:14 | PRG ---
DATE OF SERVICE: 02/26/2020 SUBJECTIVE: The patient was seen this evening during rounds. She was lying in bed, resting comfortably and asleep with no signs of acute distress. Pulmonary, equal chest rise and fall, no signs of acute respiratory distress. OBJECTIVE: VITAL SIGNS: Temperature 97.9, pulse 66, respirations 16, oxygen saturation 94% on room air, and blood pressure 143/77. GENERAL: Well-appearing elderly female, lying in bed, resting comfortably and asleep with no signs of acute distress. PULMONARY: Equal chest rise and fall. No signs of acute respiratory distress. ASSESSMENT: 1. Status post fall from chair. 2. C1 fracture. 3. Left vertebral artery dissection. 4. Concussion. 5. History of diabetes, sciatic nerve pain, hypertension, peripheral vascular disease, and hyperlipidemia. PLAN: Continue current diet and pain regimen. Continue physical and occupational therapy. Continue to adjust the patient's antihypertensive medications. We are pending a peer to peer with Vasquez tomorrow. Job ID: [id number]
[2020-02-27] MEDS: Acetaminophen 325 MG TAB PO SCH ×4 (00:32→13:00)
[2020-02-27 05:26] VITALS: TEMP 97.6
[2020-02-27] MEDS: Aspirin 325 MG TAB PO SCH (08:11)
[2020-02-27] MEDS: Polyethylene Glycol 3350 17 GM Packet PO SCH ×2 (08:11→08:26)
[2020-02-27] MEDS: Pioglitazone HCl 15 MG TAB PO SCH (08:11)
[2020-02-27] MEDS: Gabapentin 300 MG CAP PO SCH ×2 (08:12→15:32)
[2020-02-27] MEDS: Atorvastatin Calcium 20 MG TAB PO SCH (08:12)
[2020-02-27] MEDS: Famotidine 20 MG TAB PO SCH (08:13)
[2020-02-27] MEDS: metFORMIN 500 MG TAB PO SCH (08:14)
[2020-02-27] MEDS: Amlodipine 10 MG TAB PO SCH (08:14)
[2020-02-27] MEDS: Lisinopril 20 MG TAB PO SCH (08:15)
[2020-02-27] MEDS: Naproxen 500 MG TAB PO SCH (08:16)
[2020-02-27] MEDS: Senokot S 8.6-50 MG TAB PO SCH (08:25)
[2020-02-27 15:28] VITALS: BP 138/85
--- NOTE | 2020-02-28 07:07 | DIS ---
DATE OF ADMISSION: 02/21/2020 DATE OF DISCHARGE: 02/27/2020 RESIDENT: Erick Rankin PA-C. ATTENDING PHYSICIAN: Waqas Tello MD. DISCHARGE PHYSICIAN: Aric Xiong MD. CONSULTING PHYSICIANS: 1. Dr. Sherif Stanton with Neurosurgery. 2. Dr. Aric Xiong. Trauma surgery. ADMITTING DIAGNOSES: 1. C1 fracture. 2. Left vertebral artery dissection. 3. Hyperglycemia. DISCHARGE DIAGNOSE: 1. C1 fracture. 2. Left vertebral artery dissection. 3. Hyperglycemia. HOSPITAL COURSE: The patient was a transfer from [place], [facility] post fall. The patient had a mechanical fall resulting in a C1 fracture. She was neurovascularly intact. Noted is a left vertebral artery dissection. The patient was started on aspirin. She was placed in an [place] collar and recommended for aspirin 325 mg by Neurosurgery. The patient was admitted to the surgery [facility]. Tolerated well. Pain was controlled. Glucose was controlled. Patient had no acute events. No neurologic changes. She will follow up with Neurosurgery in a few weeks. She was originally going to go to inpatient rehab; however patient is refusing this and we are planning to do a doc to doc on the date of discharge, but the patient states that it does not matter what they say, she is going to go home. She has family coming to assist her at home and she has home health. The patient's pain was /controlled. She has spontaneously voided. She is ambulatory. /PHYSICAL EXAMINATION: VITAL SIGNS: On the date of discharge, temperature is 97.6, blood pressure 138/85, heart rate is 62, respiratory rate is 16, saturating 95% on room air. GENERAL: This is a 74-year-old female, sitting up in no acute distress on the edge of the bed. HEENT: Has a C-collar in place. NEUROLOGIC: No neuro deficits. RESPIRATORY: Equal rise and fall. CARDIOVASCULAR: Regular rate. ABDOMEN: Soft. MUSCULOSKELETAL: She moves all over her extremities. PSYCHIATRIC: Normal mood and affect. NEUROLOGIC: Alert and oriented to person, place time and event. GCS is 15. She has no neurologic deficits. SKIN: [place], warm, and dry. FOLLOWUP: Follow up will be with Dr. Perry in 2 weeks. DISCHARGE MEDICATIONS ARE: 1. Tylenol 650 every 4 hours as needed. 2. Aspirin 325 mg daily. 3. Continue atorvastatin. 4. Gabapentin 600 mg t.i.d. 5. Patient's home glipizide 10 mg b.i.d. 6. Lisinopril 20 mg daily. 7. Naproxen 250 mg b.i.d. 8. No tramadol secondary to patient's allergies. 9. Tylenol #3 1 tab q 4-6 hours PRN pain, (no tylenol with this medication) I have answered all questions with the patient at the bedside coordinating care with the surgery nursing staff. Greater than 30 minutes was taken in discharge planning of the patient. Job ID: [id number] Of Note: 02/28/2020 addendum. Rx for tramadol was sent home with Ms. Newman. She has had a rash to this in the past. I was able to contact her via phone and she recondized this, has not taken the medication. She was instructed and verbalized understanding not to take tramadol. She wanted an alternative pain medication. I called in to [facility] in [place] 30 tabs of Tylenol #3 with no refills. Taken as noted above. Advised to take a stool softener with this and not to take additional tylenol if she was on the T#3. Verbalized understanding. Carmen LOREDO
== END 2020-02-27 15:37 | disposition home health service (06) | DRG 551 ==
LOC: ERS 13:08 → IMCU/EMU 17:53 → SURG A 02-22 14:55
PROVIDERS: ADMIT Surgery; ATTEND Surgery
DX: S12.000A Unspecified displaced fracture of first cervical vertebra, initial encounter for closed fracture (principal); I77.74 Dissection of vertebral artery; Z20.828 Contact with and (suspected) exposure to other viral communicable diseases; E11.65 Type 2 diabetes mellitus with hyperglycemia; E78.5 Hyperlipidemia, unspecified; I10 Essential (primary) hypertension; Z96.653 Presence of artificial knee joint, bilateral; W17.89XA Other fall from one level to another, initial encounter; E11.51 Type 2 diabetes mellitus with diabetic peripheral angiopathy without gangrene; S06.0X0A Concussion without loss of consciousness, initial encounter; M54.30 Sciatica, unspecified side; Z79.82 Long term (current) use of aspirin; Z88.8 Allergy status to other drugs, medicaments and biological substances; Z79.899 Other long term (current) drug therapy; Z79.84 Long term (current) use of oral hypoglycemic drugs
CPT/HCPCS: 36415; 36416; 70496; 70498; 80048; 83735; 84100; 85025; 85027; 85610; 85730; 87635; 96374; J1650; J1815; J2270; J2405; J3475; J7050; Q0163; Q9967; U0003

== ENCOUNTER 2020-03-23 12:54 | Outpatient (CLI) | payer MEDICARE ==
--- NOTE | 2020-03-23 13:28 | RAD ---
Cervical spine 3 views: 03/23/2020 HISTORY: Reevaluate fracture of the C1 vertebral body FINDINGS: Frontal, lateral, and open-mouth odontoid views provided. The lateral examination demonstra frank disc space narrowing with degenerative endplate change as well as mild anterior and posterior osteophyte at C4-5 and C5-6. No prevertebral soft tissue swelling is noted. A CT examination of the cervical spine on 02/21/2020 demonstrated a fracture involving the left latera l aspect of C1. On this examination that region of prior fracture is not optimally assessed secondary to overlapping osseous structures and the patient's teeth. This exam does not demonstrate e vidence for a dens fracture. The C1-2 articulation appears within normal limits. There is multilevel cervical spine facet and uncovertebral osteophyte formation. IMPRESSION: 3 views of the cervical spine as detailed above. The previously noted fractures not optim ally assessed on this examination. Recommend CT of the cervical spine as clinically warranted.
== END 2020-03-23 12:55 | disposition home or self-care (01) ==
LOC: TBSIIMAG 12:54
PROVIDERS: ATTEND Neurological Surgery
DX: S12.000A Unspecified displaced fracture of first cervical vertebra, initial encounter for closed fracture (principal)
CPT/HCPCS: 72040

== ENCOUNTER 2020-04-26 11:08 | Outpatient (CLI) | payer MEDICARE ==
--- NOTE | 2020-04-26 12:26 | RAD ---
CERVICAL SPINE 7 VIEWS: Date: 04/26/2020 HISTORY: Cervical spine fracture. Correlation made to CT cervical spine dated 02/21/2020. That exam described a fracture of the left tr ansverse process of C1. FINDINGS: That fracture involving the transverse process of C1 is not apparent on plain film evaluation. Cervic al vertebra maintain normal height and alignment are unchanged in appearance from exam of 03/23/2020. Degenerative changes of cervical spine again noted with disc narrowing and hypertrophic spurring mos t pronounced at the C4-5, C5-6, and C6-7 levels. Posterior spondylosis at these levels again noted. IMPRESSION: Degenerative changes of cervical spine appear stable. Vertebral body height and alignment is maintain ed and is unchanged when compared to prior exam of 03/23/2020. POS: AGW
== END 2020-04-26 11:09 | disposition home or self-care (01) ==
LOC: TBSIIMAG 11:08
PROVIDERS: ATTEND Neurological Surgery
DX: S12.9XXA Fracture of neck, unspecified, initial encounter (principal); M47.812 Spondylosis without myelopathy or radiculopathy, cervical region
CPT/HCPCS: 72050

== ENCOUNTER 2020-05-31 14:07 | Outpatient (CLI) | payer MEDICARE ==
--- NOTE | 2020-05-31 14:47 | RAD ---
CERVICAL SPINE 3 VIEWS: HISTORY: Cervical spine fracture. COMPARISON: 04/26/2020. FINDINGS: Upright neutral, flexion, and extension lateral views of the cervical spine are performed. The previously noted left lateral mass and foramen transversarium fracture is not definitely demonstr ated on this study. There is no evidence for abnormal translation between flexion and extension. Di sk-osteophytosis, particularly at C4-C5, C5-C6, and C6-C7. No significant prevertebral soft tissue s welling. IMPRESSION: No abnormal translation. No significant change from the most recent prior study of 04/26/2020. POS: AH
== END 2020-05-31 14:08 | disposition home or self-care (01) ==
LOC: TBSIIMAG 14:07
PROVIDERS: ATTEND Neurological Surgery
DX: S12.9XXA Fracture of neck, unspecified, initial encounter (principal)
CPT/HCPCS: 72050